=== PATIENT | female | born 1945 | race Caucasian/White ===

== ENCOUNTER → 2016-12-27 12:35 | Outpatient (CLI) | payer MEDICARE, OTHER ==
[2013-03-09 14:55] VITALS: BMI 21.9
[~2016-12-27 12:35] MED LIST: ALENDRONATE SOD70 MG PO; BAYER CHEWABLE81 MG PO; BIOTIN5 MG PO; CALTRATE-600600 MG PO; CELEBREX200 MG PO; CIPRO750 MG PO; DEMEROL50 MG PO; FISH OIL 1,0001 CA1 PO; GLUCOSAMINE HC500 MG PO; HYDROCODONE-APA1 TAB PO; LISINOPRIL10 MG PO; MYRBETRIQ50 MG PO; NASACORT AQ16.5 GM NS; NORCO 10/325 TA1 TA1 PO; STOOL SOFTENER250 MG PO; TUMERIC PO; VESICARE10 MG PO; VIIBRYD40 MG PO; VITAMIN C1000 MG PO; VITAMIN D31000 UNIT PO; VITAMIN E1000 UNIT PO; [UNRECOGNIZED DRUG - OTHER] PO
[2017-03-16 10:11] VITALS: BMI 21.5
== END | disposition home or self-care (01) ==
LOC: D.RAD 12:35
DX: M25.511 Pain in right shoulder (principal)

== ENCOUNTER 2017-03-05 13:15 | Emergency (ER) | payer MEDICARE, OTHER ==
[2013-03-09 14:55] VITALS: BMI 21.9
[~2017-03-05 13:15] MED LIST changes: -ALENDRONATE SOD70 MG PO; -HYDROCODONE-APA1 TAB PO; -LISINOPRIL10 MG PO; -MYRBETRIQ50 MG PO; -VESICARE10 MG PO; -[UNRECOGNIZED DRUG - OTHER] PO
[2017-03-15] MEDS ORDERED: LISINOPRIL10 MG PO (11:18)
[2017-03-15] MEDS ORDERED: VESICARE10 MG PO (11:19)
[2017-03-15] MEDS ORDERED: MYRBETRIQ50 MG PO (11:19)
[2017-03-15] MEDS ORDERED: [UNRECOGNIZED DRUG - OTHER] PO (11:20)
[2017-03-15] MEDS ORDERED: ALENDRONATE SOD70 MG PO (11:21)
== END 2017-03-05 17:00 | disposition home or self-care (01) ==
LOC: D.ER 13:15
DX: S09.90XA Unspecified injury of head, initial encounter (principal); W11.XXXA Fall on and from ladder, initial encounter; Y93.89 Activity, other specified; Y92.019 Unspecified place in single-family (private) house as the place of occurrence of the external cause; S62.101A Fracture of unspecified carpal bone, right wrist, initial encounter for closed fracture; S89.91XA Unspecified injury of right lower leg, initial encounter; S16.1XXA Strain of muscle, fascia and tendon at neck level, initial encounter; S00.03XA Contusion of scalp, initial encounter; I10 Essential (primary) hypertension

== ENCOUNTER 2017-03-16 05:16 | Day surgery (SDC) | payer MEDICARE, OTHER ==
[2017-03-15 10:35] LABS: HEMOGLOBIN 12.9 g/dL (12-16); MCH 33.2 pg (26.0-34.0); MCHC 33.1 g/dL (31.0-37.0); MCV 100.3 fL (80.0-100.0); MEAN PLATELET VOLUME 8.2 fL (7.4-10.4); RBC 3.89 10x6/uL (4.00-5.40); RDW 13.3 % (11.5-14.5); WBC 7.3 10x3/uL (4.8-10.8)
[~2017-03-16] VITALS: Ht 152.4 cm; Wt 49.9 kg
--- NOTE | ~2017-03-16 | OP ---
PATIENT NAME: NOEMI CHAVIRA MEDICAL RECORD: [id number] :45 LOCATION:[facility] ADMISSION DATE: SURGEON: ANGELICA CARLSON MD DATE OF OPERATION: 03/16/2017 PREOPERATIVE DIAGNOSIS: Displaced distal radius fracture of the right wrist. POSTOPERATIVE DIAGNOSIS: Displaced distal radius fracture of the right wrist. PROCEDURE: Open reduction and internal fixation of the right wrist. SURGEON: Angelica Carlson MD ANESTHESIA: General. INTRAOPERATIVE COMPLICATIONS: None. SUMMARY OF PATHOLOGIC FINDINGS: The patient was indeed found to have displaced distal radius fracture with dorsal comminution, loss of radial angle of inclination, and volar tilt. OPERATIVE SUMMARY IN DETAIL: After obtaining the appropriate preoperative orthopedic surgery consent as well as anesthetic consultation, evaluation, and clearance, the patient was brought to the operating room and placed on the table in supine position. After adequate general laryngeal mask airway anesthesia was administered, tourniquet was placed about the proximal aspect of the right upper extremity. The right upper extremity was then prepped and draped in routine sterile fashion. The arm was elevated, exsanguinated, and tourniquet was inflated to 350 mmHg. Routine volar incision was made in line with the volar approach of Mike, taken down to the level of the flexor carpal radialis, used as landmark. Formal carpal tunnel release was performed to ensure good relief. Median nerve was retracted and the fracture was exposed. The fracture was then cleaned of all fracture hematoma. Reduction maneuver was performed under fluoroscopic guidance and then the volar plate from [employer] was placed. Serial and sequential drill and fill was done with combination of both locking and nonlocking screws. Having completed this, x-rays were taken in both AP and lateral planes, submitted for final radiologist review. Wound was copiously irrigated and closed with 2-0 Vicryl followed by 4-0 Prolene in running fashion. A small volar plate was applied. The tourniquet was deflated. The patient was awakened and taken to recovery room in stable condition. All final needle and sponge counts were correct. TRANSINT:[id number] Voice Confirmation ID: [id number] DOCUMENT ID: [id number] ANGELICA CARLSON MD at 1346 CC: [id number] DICTATION DATE: 03/16/17 1213 SHIP LINER: 03/16/17 1244 DEP SD 03/16/17 [place] [id number] [facility] [place] [address]
[~2017-03-16 05:16] MED LIST changes: +ALENDRONATE SOD70 MG PO; +LISINOPRIL10 MG PO; +MYRBETRIQ50 MG PO; +VESICARE10 MG PO; +[UNRECOGNIZED DRUG - OTHER] PO
[2017-03-16 10:11] VITALS: BP 131/57; Ht 152.4 cm; Wt 49.9 kg
[2017-03-16] MEDS ORDERED: HYDROCODONE-APA1 TAB PO (11:56)
== END 2017-03-16 13:33 | disposition home or self-care (01) ==
LOC: D.OPS 05:16 → D.PAN 12:15 → D.OPS 13:33
PROVIDERS: Anesthesiology
DX: S52.501A Unspecified fracture of the lower end of right radius, initial encounter for closed fracture (principal); I10 Essential (primary) hypertension; M25.511 Pain in right shoulder; M79.671 Pain in right foot; Z01.812 Encounter for preprocedural laboratory examination

== ENCOUNTER 2018-12-14 11:54 | Emergency (ER) | payer MEDICARE, OTHER ==
[~2018-12-14] VITALS: Ht 152.4 cm; Wt 52.7 kg
[~2018-12-14 11:54] MED LIST changes: +HYDROCODONE-APA1 TAB PO
[2018-12-14 11:56] VITALS: Ht 152.4 cm; Wt 52.7 kg
[2018-12-14 14:21] VITALS: BP 100/60
== END 2018-12-14 14:28 | disposition home or self-care (01) ==
LOC: D.ER 11:54
DX: R55 Syncope and collapse (principal); W19.XXXA Unspecified fall, initial encounter

== ENCOUNTER 2019-05-19 10:36 | Emergency (ER) | payer MEDICARE, OTHER ==
[~2019-05-19] VITALS: Ht 152.4 cm; Wt 49.5 kg
[2019-05-19 10:38] VITALS: Ht 152.4 cm; Wt 49.5 kg
[2019-05-19] MEDS ORDERED: KLONOPIN0.5 MG PO (10:44)
[2019-05-19 11:08] LABS: BASOPHILS 0.5 % (0-2); EOSINOPHILS 2.4 % (0-7); HEMATOCRIT 42.1 % (36.0-48.0); HEMOGLOBIN 14.4 g/dL (12-16); IMMATURE GRANULOCYTES 0.6 % (0-5); LYMPHOCYTES 33.5 % (15-50); MCH 32.7 pg (26.0-34.0); MCHC 34.2 g/dL (31.0-37.0); MCV 95.7 fL (80.0-100.0); MEAN PLATELET VOLUME 8.3 fL (7.4-10.4); MONOCYTES 10.4 % (2-11); NEUTROPHILS 52.6 % (40-80); RDW 14.6 % (11.5-14.5); WBC 10.9 10x3/uL (4.8-10.8)
[2019-05-19 11:12] LABS: PLATELET COUNT 369 10x3/uL (130-400)
[2019-05-19 11:21] LABS: ANION GAP 13.2 mmol/L (8-16); CALCIUM 9.4 mg/dL (8.5-10.1); CARBON DIOXIDE 28.3 mmol/L (21.0-32.0); CREATININE - SERUM 0.9 mg/dL (0.6-1.3); POTASSIUM - SERUM 3.5 mmol/L (3.5-5.1)
[2019-05-19 11:27] LABS: BILIRUBIN - TOTAL 0.52 mg/dL (0.2-1.3); PROTEIN - SERUM 7.3 g/dL (6.4-8.2)
[2019-05-19] MEDS ORDERED: HYDROCODON-ACE1 EA10 PO (11:57)
[2019-05-19 12:50] VITALS: BP 141/73
== END 2019-05-19 12:51 | disposition home or self-care (01) ==
LOC: D.ER 10:36
PROVIDERS: Family Medicine
DX: S42.202A Unspecified fracture of upper end of left humerus, initial encounter for closed fracture (principal); M25.511 Pain in right shoulder; W01.0XXA Fall on same level from slipping, tripping and stumbling without subsequent striking against object, initial encounter; Y93.9 Activity, unspecified; Y92.242 Post office as the place of occurrence of the external cause

== ENCOUNTER 2019-10-01 05:56 | Day surgery (SDC) | payer MEDICARE, OTHER ==
[~2019-10-01] VITALS: Ht 152.4 cm; Wt 51.3 kg
--- NOTE | ~2019-10-01 | OP ---
PATIENT NAME: NOEMI CHAVIRA MEDICAL RECORD: [id number] :45 [facility] DATE: SURGEON: KEO MENDES MD DATE OF OPERATION: 10/01/2019 PREOPERATIVE DIAGNOSIS: Right chronic sinusitis, maxillary and sphenoid. POSTOPERATIVE DIAGNOSIS: Right chronic sinusitis, maxillary and sphenoid. PROCEDURE: Right middle meatal antrostomy, right endoscopic sphenoidotomy, and bilateral cautery of inferior turbinates. SURGEON: Keo Mendes MD ANESTHESIA: General orotracheal. BLOOD LOSS: Less than 5 mL. SPECIMENS: Material from the right maxillary sinus. COMPLICATIONS: None. DISPOSITION: Recovery stable. PROCEDURE NOTE: She was brought to the operating room, placed in supine position, sedated and intubated by anesthesia. Noses were examined. She had been decongested with Afrin preoperatively. Both sides of the nose are injected, inferior turbinate, the right uncinate, and middle turbinate with a total of 1 mL of 1% lidocaine with 1:100,000 epinephrine and Afrin pledgets were placed bilaterally. The table was turned 90 degrees. She was positioned, prepped and draped in usual fashion for sinus surgery. Then, using a 0-degree telescope, all the Afrin pledgets were removed from both sides of the nose. Nasal cavity was examined. There were no masses or polyps in inferior middle turbinates. Inferior middle meatus was normal bilaterally. Nasal vault was normal. Posteriorly, the sphenoid ostium on the right side, there was actually a little bit of purulence there. A #7 suction was used to enter the sinus. It was then enlarged inferiorly and medially and there were some solid green pieces of material there that was suctioned out. The sinus was nice and open. The #7 suction was placed in the middle of the sinus and was irrigated with saline to rinse it out repeatedly. There was really no bleeding. Then, the middle turbinate was medialized with a Romeo. Uncinate was fractured anteriorly and the inferior portion was removed with a microdebrider along with some inflamed tissue around the meatus. A long curved olive tip suction was inserted deeply into the maxillary sinus and a Luki trap was used to evacuate the contents, really again solid green, black material. It was then irrigated with saline and again suctioned with a Luki trap. Nose was examined with a 30-degree scope and a 70-degree scope. Sinus was clean but was repeatedly irrigated with a 30 mL saline syringe and a large curved olive tip suction, rinsing the sinus out over and over and over 15-20 times. The nasal cavity was suctioned out. The left side was examined and was normal. Then, both inferior turbinates were cauterized with suction cautery and outfractured with a Roby elevator. The nose was examined. Suction was used to evacuate the saline from the sphenoid and the maxillary sinus. Some mupirocin ointment was placed. Eyes were examined and normal. She was awakened, extubated, and transported to recovery in good condition. No complications. OPERATIVE REPORT [id number] NOEMI CHAVIRA NTS:[id number] Voice Confirmation ID: [id number] DOCUMENT ID: [id number] KEO MENDES MD CC: [id number] DICTATION DATE: 10/01/19 1111 ASSEMBLER SKYLIGHTS: 10/01/191953 [facility] 10/01/19 [facility] [address] [place] [address]
[~2019-10-01 05:56] MED LIST changes: +HYDROCODON-ACE1 EA10 PO; +KLONOPIN0.5 MG PO; +NEXIUM20 MG PO
[2019-10-01 06:20] LABS: HEMATOCRIT 41.1 % (36.0-48.0); HEMOGLOBIN 13.6 g/dL (12-16); MCH 32.1 pg (26.0-34.0); MCHC 33.1 g/dL (31.0-37.0); MCV 96.9 fL (80.0-100.0); MEAN PLATELET VOLUME 8.4 fL (7.4-10.4); RBC 4.24 10x6/uL (4.00-5.40); RDW 13.9 % (11.5-14.5)
[2019-10-01] MEDS ORDERED: OMEPRAZOLE20 M1 PO (06:54)
[2019-10-01 07:15] VITALS: BP 142/71; Ht 152.4 cm; Wt 51.3 kg
--- NOTE | 2019-10-01 09:51 | HP ---
PATIENT: NOEMI THORNE MEDICAL RECORD: [id number] ACCOUNT: [id number] LOCATION:[facility] : 45 ADMISSION DATE: 10/01/19 PCP: CHRIS HSIEH MD HISTORY AND PHYSICAL EXAMINATION PREOPERATIVE HISTORY AND PHYSICAL HISTORY OF PRESENT ILLNESS: Ms. Thorne is a 74-year-old female with right-sided chronic sinusitis and CT findings of calcification in the sinus. She has been admitted for right-sided sinus surgery. PAST MEDICAL HISTORY: Includes hypertension. PAST SURGICAL HISTORY: Includes for broken wrist, pacemaker, and knee replacement. ALLERGIES: VIOXX, MORPHINE, DEMEROL, KEFLEX, AND SURGICAL TAPE. CURRENT MEDICATIONS: Calcium and vitamin D, Prilosec, Myrbetriq, VESIcare, Celebrex, clonazepam, alendronate sodium (Fosamax). PHYSICAL EXAMINATION: GENERAL: Healthy-appearing. FACE: Normal, symmetric. No lesions. EYES: Sclerae and conjunctivae are normal. EARS: Canals and TMs are normal. NOSE: Anterior rhinoscopy is normal. ORAL CAVITY AND OROPHARYNX: Tongue protrudes in midline. Pharynx is normal. NECK: No masses, no adenopathy. CHEST: Clear. CARDIOVASCULAR: Regular rate and rhythm. No murmur. EXTREMITIES: Normal. DIAGNOSTIC DATA: CT, she has total opacification of the right maxillary sinus and some calcification as well as some fluid in the right sphenoid sinus. IMPRESSION: Chronic right-sided sinusitis. PLAN: Right middle meatal antrostomy, right sphenoidotomy, and cautery of the inferior turbinates. TRANSINT:[id number] Voice Confirmation ID: [id number] DOCUMENT ID: [id number] JENNIFER GREENFIELD MD at 0951 CC: [id number] DICTATION DATE: 09/27/19 1051 TENNIS BALL COVERER HAND: 09/27/19 1232 [address] [place] [id number] [place] [address]
--- NOTE | 2019-10-01 15:04 | NUR ---
1245 IV DC'D. CATHETER TIP INTACT. NO BLEEDING AT SITE AFTER HOLDING PRESSURE. BANDAID APPLIED. 1315 DISCHARGE INSTRUCTIONS REVIEWED WITH PT AND HER SON. BOTH VOICE UNDERSTANDING OF INSTRUCTIONS. PT HAS A SMALL AMOUNT OF DRAINAGE ON NASAL DRIP PAD. SHE HAS ADDITONAL GUAZE TO CHANGE DRESSING NEEDED. PT VOIDED PRIOR TO BEING DISCHARGED HOME
== END 2019-10-01 13:20 | disposition home or self-care (01) ==
LOC: D.OPS 05:56
PROVIDERS: Anesthesiology; ATTEND Otolaryngology
DX: J32.9 Chronic sinusitis, unspecified (principal); I10 Essential (primary) hypertension; J32.0 Chronic maxillary sinusitis